=== PATIENT | female | born 1985 | race Caucasian/White ===

== ENCOUNTER 2022-07-09 22:49 | Inpatient (IN) | payer MEDICARE, MEDICAID ==
[~2022-07-09] VITALS: Ht 167.6 cm; Wt 63.2 kg
[2022-07-09 23:12] VITALS: BP 132/80
[2022-07-09 23:37] VITALS: BP 138/82
[2022-07-09 23:52] VITALS: BP 131/83
[2022-07-09] MEDS: LR 1,000 ML IV SCH (23:55)
[2022-07-10] VITALS (22 sets, daily range): BP systolic 105–187; BP diastolic 66–108
[2022-07-10 00:13] LABS: APPEARANCE, URINE MANUAL HAZY (CLEAR); COLOR, URINE MANUAL DK YELLOW (YELLOW)
[2022-07-10 00:14] LABS: GLUCOSE, URINE (UA) MANUAL 2+(250 MG/DL) mg/dL (NEGATIVE); KETONE, URINE MANUAL 1+ mg/dL (NEGATIVE); PH,URINE MAN 6.5 UNITS (5.0 - 7.0); PROTEIN, URINE MANUAL 1+ mg/dL (NEGATIVE)
[2022-07-10 00:15] LABS: BILIRUBIN, URINE MANUAL 1+ (NEGATIVE); BLOOD URINE MANUAL NEGATIVE (NEGATIVE); LEUKOCYTE ESTERASE, URINE MAN POSITIVE (NEGATIVE); NITRITE, URINE MANUAL NEGATIVE (NEGATIVE); UROBILINOGEN, URINE MANUAL 1 MG mg/dl (NORMAL)
[2022-07-10 00:33] LABS: URIC ACID 4.7 MG/DL (3.1-7.8)
[2022-07-10 00:35] LABS: LDH LACTATE DEHYDROGENASE 225 U/L (120-246)
[2022-07-10 00:36] LABS: ALT/SGPT 646 U/L (7.0-40); AST/SGOT 378 U/L (<34); BILIRUBIN,TOTAL 1.7 MG/DL (0.3-1.2); CREATININE FOR GFR 0.79 MG/DL (0.55-1.30); GLOMERULAR FILTRATION RATE > 60.0 (>60)
[2022-07-10 00:41] LABS: HEMATOCRIT 38.1 % (36.0-47.0); HEMOGLOBIN 12.6 g/dl (12.0-15.5); MEAN CORPUSCULAR HEMOGLOBIN 29.4 pg (27.0-33.0); MEAN CORPUSCULAR HGB CONC 33.1 g/dl (32.0-36.5); PLATELET COUNT, AUTOMATED 157 10^3/uL (150-450); RED BLOOD COUNT 4.28 10^6/uL (4.00-5.40); WHITE BLOOD COUNT 6.7 10^3/uL (4.0-10.0)
[2022-07-10 00:54] LABS: BACTERIA, URINE LARGE AMOUNT; SQUAMOUS EPITHELIAL CELL URINE MOD AMOUNT /hpf (SMALL AMT)
[2022-07-10 00:55] LABS: RBC, URINE 0-1 /hpf (0-3)
[2022-07-10 00:56] LABS: HYALINE CAST, URINE NONE SEEN /lpf (0-1)
[2022-07-10 01:00] LABS: AMPHETAMINES URINE REFLEX NEGATIVE (NEGATIVE); BARBITURATES URINE REFLEX NEGATIVE (NEGATIVE); BENZODIAZEPINES URINE REFLEX NEGATIVE (NEGATIVE); CANNABINOIDS URINE REFLEX NEGATIVE (NEGATIVE); COCAINE METABOLITE URINE REFLE NEGATIVE (NEGATIVE); CREATININE,RANDOM URINE 81.3 MG/DL; METHADONE URINE REFLEX NEGATIVE (NEGATIVE); OPIATES URINE REFLEX NEGATIVE (NEGATIVE); PHENCYCLIDINE URINE REFLEX NEGATIVE (NEGATIVE); TOTAL PROTEIN,RANDOM URINE 66.6 MG/DL (0.0-14.0)
[2022-07-10 01:17] LABS: HEPATITIS C VIRUS ABY INDEX < 0.0 INDEX (<0.8)
[2022-07-10 02:03] LABS: GC DNA AMPLIFICATION NEGATIVE (NEGATIVE)
[2022-07-10] MEDS ORDERED: BETAMETHASONE SOLUSPAN 6MG/ML 5ML VIAL IM ONE (05:00)
[2022-07-10] MEDS: PRENATAL VITAMINS CHEWABLE TABLET PO SCH (09:00)
[2022-07-10] MEDS ORDERED: ONDANSETRON 4MG 2ML VIAL IV PRN ×3 (09:40→13:35)
[2022-07-10 10:11] LABS: HEMATOCRIT 38.5 % (36.0-47.0); HEMOGLOBIN 12.5 g/dl (12.0-15.5); MEAN CORPUSCULAR HGB CONC 32.5 g/dl (32.0-36.5); MEAN CORPUSCULAR VOLUME 89.3 fl (80.0-96.0); PLATELET COUNT, AUTOMATED 168 10^3/uL (150-450); RED BLOOD COUNT 4.31 10^6/uL (4.00-5.40); WHITE BLOOD COUNT 8.5 10^3/uL (4.0-10.0)
[2022-07-10 10:35] LABS: ALBUMIN 2.3 G/DL (3.2-5.2); ALKALINE PHOSPHATASE 268 U/L (46-116); ALT/SGPT 588 U/L (7.0-40); AST/SGOT 385 U/L (<34); BILIRUBIN,TOTAL 2.1 MG/DL (0.3-1.2); BLOOD UREA NITROGEN 10 MG/DL (9-23); CALCIUM LEVEL 8.9 MG/DL (8.5-10.1); CARBON DIOXIDE LEVEL 22 MMOL/L (20-31); CHLORIDE LEVEL 102 MMOL/L (98-107); CREATININE FOR GFR 0.68 MG/DL (0.55-1.30); GLOMERULAR FILTRATION RATE > 60.0 (>60); GLUCOSE, FASTING 100 MG/DL (60-100); POTASSIUM SERUM 4.2 MMOL/L (3.5-5.1); SODIUM LEVEL 135 MMOL/L (136-145); TOTAL PROTEIN 6.7 G/DL (5.7-8.2)
[2022-07-10] MEDS ORDERED: LIDOCAINE 1% MDV 20ML VIAL INFIL PRN (11:05)
[2022-07-10] MEDS ORDERED: TRANEXAMIC ACID INJection 1,000 MG in NS 100 ML IV PRN (11:05)
[2022-07-10] MEDS ORDERED: BICITRA 30ML SOLN UDC PO ONE (11:05)
[2022-07-10] MEDS ORDERED: ceFAZolin SOD 2 GM in IV 1 EA IV ONE (11:05)
[2022-07-10] MEDS ORDERED: CARBOPROST TROMETHAMINE 250 MCG/ML AMP IM PRN (11:05)
[2022-07-10] MEDS: LR 1,000 ML IV SCH ×2 (11:41→17:05)
[2022-07-10 12:44] LABS: CORD GAS ABE V -2.9; CORD GAS O2 SAT V 52.4 %; CORD GAS PCO2 V 50.1 mmHg; CORD GAS PH V 7.299 UNITS; CORD GAS PO2 V 22.2 mmHg; CORD GAS SBC V 21.1 MEQ/L; CORD GAS TCO2 V 25.6 MEQ/L
[2022-07-10] MEDS ORDERED: OXYTOCIN 30UNITS IN 0.9% NaCl 500ML IV BAG As Ordered ONE ×2 (13:04→13:07)
[2022-07-10] MEDS ORDERED: hydrALAZINE 20MG/ML 1ML VIAL As Ordered ONE (13:07)
[2022-07-10] MEDS ORDERED: KETAMINE HCL 200MG/20ML VIAL As Ordered ONE (13:07)
[2022-07-10] MEDS ORDERED: LABETALOL 100MG/20ML VIAL As Ordered ONE (13:07)
[2022-07-10] MEDS ORDERED: MIDAZOLAM INJ 2MG/2ML VIAL As Ordered ONE (13:07)
[2022-07-10] MEDS ORDERED: ONDANSETRON 4MG 2ML VIAL As Ordered ONE (13:07)
[2022-07-10] MEDS ORDERED: ACETAMINOPHEN 1000MG 100ML IV BAG As Ordered ONE (13:07)
[2022-07-10] MEDS ORDERED: METOCLOPRAMIDE INJ 10MG/2ML VIAL As Ordered ONE (13:07)
[2022-07-10] MEDS ORDERED: KETOROLAC 60MG 2ML VIAL As Ordered ONE (13:07)
[2022-07-10] MEDS ORDERED: MORPHINE PRES-FREE INJ 10 MG/10 ML VIAL As Ordered ONE (13:07)
[2022-07-10] MEDS ORDERED: PERCOCET 5MG/325MG TAB PO PRN (13:20)
[2022-07-10] MEDS ORDERED: SIMETHICONE 80MG CHEW TAB PO PRN (13:20)
[2022-07-10] MEDS ORDERED: MORPHINE 2 MG/ML 1ML VIAL IV PRN (13:20)
[2022-07-10] MEDS ORDERED: RHOGAM 300MCG (1500IU) INJ IM SCH (13:20)
[2022-07-10] MEDS ORDERED: OXYTOCIN DRIP 30 UNITS in IV 1 EA IV SCH (13:20)
[2022-07-10] MEDS ORDERED: **NOTE PATIENT COMMENT** MISC XX SCH (13:35)
[2022-07-10] MEDS ORDERED: HYDROMORPHONE HCL 0.5 MG/ 0.5 ML SYRINGE IV PRN (13:35)
[2022-07-10] MEDS ORDERED: NALOXONE INJ 0.4MG/1ML VIAL IV PRN (13:35)
[2022-07-10] MEDS ORDERED: oxyCODONE 5MG TAB PO PRN (13:35)
[2022-07-10] MEDS ORDERED: MEPERIDINE 25 MG/ML 1ML VIAL IV PRN (13:35)
[2022-07-10] MEDS ORDERED: diphenhydrAMINE 50MG/ML VIAL IV PRN (13:35)
[2022-07-10] MEDS ORDERED: fentaNYL 100 MCG/2 ML INJECTION IV PRN (13:35)
[2022-07-10] MEDS ORDERED: METOCLOPRAMIDE INJ 10MG/2ML VIAL IV PRN (13:35)
[2022-07-10] MEDS: SLF 3 ML SYR IV SCH ×2 (13:46→21:38)
[2022-07-10] MEDS: PERCOCET 5MG/325MG TAB PO PRN ×2 (17:06→21:37)
[2022-07-10] MEDS: KETOROLAC 30 MG/ML 1ML VIAL IV SCH (18:49)
[2022-07-10] MEDS ORDERED: LIDOCAINE 1% MDV 50ML VIAL ONE (18:53)
[2022-07-10] MEDS: DOCUSATE SODIUM 100MG CAPSULE PO SCH (21:00)
[2022-07-11] MEDS: LR 1,000 ML IV SCH (00:10)
[2022-07-11] MEDS: KETOROLAC 30 MG/ML 1ML VIAL IV SCH ×2 (00:59→07:15)
[2022-07-11 02:00] VITALS: BP 122/79
[2022-07-11] MEDS: PERCOCET 5MG/325MG TAB PO PRN ×3 (05:11→20:22)
[2022-07-11] MEDS: SLF 3 ML SYR IV SCH (05:47)
[2022-07-11 06:00] VITALS: BP 122/71
[2022-07-11] MEDS: DOCUSATE SODIUM 100MG CAPSULE PO SCH ×2 (08:01→21:00)
[2022-07-11] MEDS: PRENATAL VITAMINS CHEWABLE TABLET PO SCH (08:02)
[2022-07-11 10:00] VITALS: BP 114/65
[2022-07-11 14:00] VITALS: BP 144/77
[2022-07-11] MEDS: IBUPROFEN 800 MG TAB PO SCH ×2 (15:20→23:00)
[2022-07-11 19:40] VITALS: BP 132/73
[2022-07-12] MEDS: IBUPROFEN 800 MG TAB PO SCH ×5 (06:30→23:00)
[2022-07-12] MEDS ORDERED: PERCOCET PO (07:29)
[2022-07-12] MEDS ORDERED: IBUP80TA PO (07:29)
[2022-07-12] MEDS ORDERED: COLA100C5 PO (07:29)
[2022-07-12] MEDS ORDERED: MEASLES,MUMPS,RUBELLA VACCINE INJ (MMR-II) SC.IMMUN ONE (09:00)
[2022-07-12] MEDS: DOCUSATE SODIUM 100MG CAPSULE PO SCH ×2 (09:00→21:00)
[2022-07-12] MEDS: PRENATAL VITAMINS CHEWABLE TABLET PO SCH (09:00)
[2022-07-12 12:04] VITALS: BP 131/82
[2022-07-12] MEDS: ACETAMINOPHEN 500 MG TAB PO PRN ×2 (12:15→22:52)
[2022-07-12] MEDS ORDERED: OLANZapine 5 MG TAB PO PRN (16:45)
[2022-07-12 18:00] VITALS: BP 138/89
[2022-07-12] MEDS: PERCOCET 5MG/325MG TAB PO PRN (23:25)
[2022-07-13] MEDS: IBUPROFEN 800 MG TAB PO SCH ×2 (07:00→15:00)
[2022-07-13] MEDS: PRENATAL VITAMINS CHEWABLE TABLET PO SCH (08:27)
[2022-07-13] MEDS: DOCUSATE SODIUM 100MG CAPSULE PO SCH (08:28)
[2022-07-13] MEDS ORDERED: MEASLES,MUMPS,RUBELLA VACCINE INJ (MMR-II) SC.IMMUN ONE (09:00)
[2022-07-13] MEDS ORDERED: NITR-67 PO (09:47)
[2022-07-13 14:02] VITALS: BP 132/88
== END 2022-07-13 17:40 | DRG 788 ==
LOC: M LDI 22:49 → M OBS 07-10 14:54
PROVIDERS: ADMIT Advanced Practice Midwife; ATTEND Advanced Practice Midwife
PROC: 10D00Z1 Extraction of Products of Conception, Low, Open Approach (ICD-10-PCS; principal; 2022-07-10 11:30)
DX: O14.24 HELLP syndrome, complicating childbirth (principal); Z3A.35 35 weeks gestation of pregnancy; O44.03 Complete placenta previa NOS or without hemorrhage, third trimester; O34.211 Maternal care for low transverse scar from previous cesarean delivery; O99.334 Smoking (tobacco) complicating childbirth; F17.200 Nicotine dependence, unspecified, uncomplicated; Z88.2 Allergy status to sulfonamides; Z88.5 Allergy status to narcotic agent; Z88.8 Allergy status to other drugs, medicaments and biological substances; O99.344 Other mental disorders complicating childbirth; F29 Unspecified psychosis not due to a substance or known physiological condition; F19.159 Other psychoactive substance abuse with psychoactive substance-induced psychotic disorder, unspecified; F53.1 Puerperal psychosis; Z37.0 Single live birth; O99.324 Drug use complicating childbirth

== ENCOUNTER 2022-07-13 15:32 | Inpatient (IN) | payer MEDICARE, MEDICAID ==
[~2022-07-13] VITALS: Ht 167.6 cm; Wt 63.1 kg
[~2022-07-13 15:32] MED LIST: COLA100C5 PO; IBUP80TA PO; NITR-67 PO; PERCOCET PO
[2022-07-13] MEDS ORDERED: LORazepam 1 MG TAB PO PRN (17:00)
[2022-07-13] MEDS ORDERED: MOM 30ML SUSPENSION UDC PO PRN (17:00)
[2022-07-13] MEDS ORDERED: OLANZapine ORAL DISINTEGRATING TAB 5MG PO PRN (17:00)
[2022-07-13] MEDS ORDERED: MAALOX 30 ML SUSP *UDC PO PRN (17:00)
[2022-07-13] MEDS ORDERED: SIMETHICONE 80MG CHEW TAB PO PRN (17:05)
[2022-07-13] MEDS ORDERED: PERCOCET 5MG/325MG TAB PO PRN (17:05)
[2022-07-13 18:39] VITALS: BP 140/90
[2022-07-13] MEDS: OLANZapine 10 MG TAB PO SCH (18:53)
[2022-07-13] MEDS: ACETAMINOPHEN TAB 650MG DOSE (2X325MG) PO PRN (19:58)
[2022-07-13] MEDS: DOCUSATE SODIUM 100MG CAPSULE PO SCH (20:00)
[2022-07-13] MEDS: CIPROFLOXACIN 500MG TABLET PO SCH (21:11)
[2022-07-13] MEDS: IBUPROFEN 800 MG TAB PO SCH (21:12)
[2022-07-13] MEDS: PERCOCET 5MG/325MG TAB PO PRN (22:26)
[2022-07-14] MEDS: CIPROFLOXACIN 500MG TABLET PO SCH ×2 (06:09→17:06)
[2022-07-14] MEDS: IBUPROFEN 800 MG TAB PO SCH ×3 (06:13→20:08)
[2022-07-14 06:54] VITALS: BP 119/72
[2022-07-14] MEDS: DOCUSATE SODIUM 100MG CAPSULE PO SCH ×2 (09:56→20:08)
[2022-07-14] MEDS: PRENATAL VITAMINS CHEWABLE TABLET PO SCH (09:56)
[2022-07-14] MEDS: OLANZapine 10 MG TAB PO SCH (09:56)
[2022-07-14] MEDS: PERCOCET 5MG/325MG TAB PO PRN ×2 (09:57→17:07)
[2022-07-14] MEDS ORDERED: NICOTINE 14 MG/24 HR TRANSDERMAL TD PRN (11:15)
[2022-07-14 12:03] LABS: BASO # 0.1 10^3/uL (0.0-0.2); BASO % 0.7 % (0.0-1.0); EOS # 0.4 10^3/uL (0.0-0.5); EOS % 3.6 % (0.0-3.0); HEMATOCRIT 37.5 % (36.0-47.0); HEMOGLOBIN 12.2 g/dl (12.0-15.5); LYMPH # 1.5 10^3/uL (1.5-5.0); MEAN CORPUSCULAR HEMOGLOBIN 29.1 pg (27.0-33.0); MEAN CORPUSCULAR HGB CONC 32.5 g/dl (32.0-36.5); MEAN CORPUSCULAR VOLUME 89.5 fl (80.0-96.0); MONO # 0.4 10^3/uL (0.0-0.8); MONO % 3.6 % (2.0-8.0); NEUTROPHILS # 7.8 10^3/uL (1.5-8.5); PLATELET COUNT, AUTOMATED 321 10^3/uL (150-450); RED BLOOD COUNT 4.19 10^6/uL (4.00-5.40); WHITE BLOOD COUNT 10.2 10^3/uL (4.0-10.0)
[2022-07-14 14:29] LABS: ALBUMIN 2.3 G/DL (3.2-5.2); ALKALINE PHOSPHATASE 409 U/L (46-116); ALT/SGPT 318 U/L (7.0-40); AST/SGOT 147 U/L (<34); BILIRUBIN,TOTAL 0.8 MG/DL (0.3-1.2); BLOOD UREA NITROGEN 17 MG/DL (9-23); CARBON DIOXIDE LEVEL 27 MMOL/L (20-31); CHLORIDE LEVEL 105 MMOL/L (98-107); CREATININE FOR GFR 0.74 MG/DL (0.55-1.30); GLOMERULAR FILTRATION RATE > 60.0 (>60); GLUCOSE, FASTING 79 MG/DL (60-100); POTASSIUM SERUM 3.9 MMOL/L (3.5-5.1); SODIUM LEVEL 138 MMOL/L (136-145)
[2022-07-14 16:13] VITALS: BP 100/60
[2022-07-14] MEDS: traZODone 50 MG TAB PO PRN (20:08)
[2022-07-14 22:08] LABS: TOTAL PROTEIN 6.7 G/DL (5.7-8.2)
[2022-07-15] MEDS: CIPROFLOXACIN 500MG TABLET PO SCH ×2 (06:30→18:13)
[2022-07-15] MEDS: IBUPROFEN 800 MG TAB PO SCH ×3 (06:34→21:09)
[2022-07-15 06:41] LABS: CHOLESTEROL RISK RATIO 8.52 (<5); HDL CHOLESTEROL 32.6 MG/DL (>40); LDL CHOLESTEROL 198.2 MG/DL (<100)
[2022-07-15 06:42] VITALS: BP 130/76
[2022-07-15] MEDS: DOCUSATE SODIUM 100MG CAPSULE PO SCH ×2 (10:26→20:53)
[2022-07-15] MEDS: PRENATAL VITAMINS CHEWABLE TABLET PO SCH (10:26)
[2022-07-15] MEDS: OLANZapine 10 MG TAB PO SCH (10:26)
[2022-07-15 18:48] VITALS: BP 131/74
[2022-07-15] MEDS: ACETAMINOPHEN TAB 650MG DOSE (2X325MG) PO PRN (20:53)
[2022-07-16] MEDS: ACETAMINOPHEN TAB 650MG DOSE (2X325MG) PO PRN (03:18)
[2022-07-16] MEDS: CIPROFLOXACIN 500MG TABLET PO SCH ×2 (05:38→17:43)
[2022-07-16] MEDS: IBUPROFEN 800 MG TAB PO SCH ×3 (05:41→22:04)
[2022-07-16 05:55] VITALS: BP 134/91
[2022-07-16] MEDS: DOCUSATE SODIUM 100MG CAPSULE PO SCH ×2 (09:11→20:07)
[2022-07-16] MEDS: PRENATAL VITAMINS CHEWABLE TABLET PO SCH (09:11)
[2022-07-16] MEDS: OLANZapine 10 MG TAB PO SCH (09:11)
[2022-07-16 16:13] VITALS: BP 136/85
[2022-07-16] MEDS: PERCOCET 5MG/325MG TAB PO PRN (20:07)
[2022-07-17] MEDS: CIPROFLOXACIN 500MG TABLET PO SCH ×2 (05:59→17:54)
[2022-07-17] MEDS: IBUPROFEN 800 MG TAB PO SCH ×3 (06:05→21:45)
[2022-07-17 06:34] VITALS: BP 155/90
[2022-07-17] MEDS: DOCUSATE SODIUM 100MG CAPSULE PO SCH ×2 (08:59→21:43)
[2022-07-17] MEDS: PRENATAL VITAMINS CHEWABLE TABLET PO SCH (08:59)
[2022-07-17] MEDS: OLANZapine 10 MG TAB PO SCH (08:59)
[2022-07-17] MEDS: PERCOCET 5MG/325MG TAB PO PRN (10:30)
[2022-07-17 16:45] VITALS: BP 131/80
[2022-07-18] MEDS: PERCOCET 5MG/325MG TAB PO PRN (00:48)
[2022-07-18] MEDS: CIPROFLOXACIN 500MG TABLET PO SCH (06:02)
[2022-07-18] MEDS: IBUPROFEN 800 MG TAB PO SCH ×3 (06:05→21:42)
[2022-07-18 06:11] VITALS: BP 133/87
[2022-07-18] MEDS: DOCUSATE SODIUM 100MG CAPSULE PO SCH ×2 (08:51→21:33)
[2022-07-18] MEDS: PRENATAL VITAMINS CHEWABLE TABLET PO SCH (08:52)
[2022-07-18] MEDS: OLANZapine 10 MG TAB PO SCH (08:52)
[2022-07-18 16:14] VITALS: BP 139/89
[2022-07-19] MEDS: PERCOCET 5MG/325MG TAB PO PRN (02:42)
[2022-07-19] MEDS: IBUPROFEN 800 MG TAB PO SCH ×3 (05:58→21:54)
[2022-07-19 06:32] VITALS: BP 121/85
[2022-07-19] MEDS: OLANZapine 10 MG TAB PO SCH (10:32)
[2022-07-19] MEDS: PRENATAL VITAMINS CHEWABLE TABLET PO SCH (10:33)
[2022-07-19] MEDS: DOCUSATE SODIUM 100MG CAPSULE PO SCH ×2 (10:33→21:54)
[2022-07-19 17:37] VITALS: BP 138/90
[2022-07-19] MEDS: traZODone 50 MG TAB PO PRN (21:56)
[2022-07-20] MEDS: PERCOCET 5MG/325MG TAB PO PRN (01:29)
[2022-07-20] MEDS: IBUPROFEN 800 MG TAB PO SCH (05:22)
[2022-07-20 06:20] VITALS: BP 135/76
[2022-07-20] MEDS: PRENATAL VITAMINS CHEWABLE TABLET PO SCH (09:34)
[2022-07-20] MEDS: DOCUSATE SODIUM 100MG CAPSULE PO SCH (09:34)
[2022-07-20] MEDS: OLANZapine 10 MG TAB PO SCH (09:34)
[2022-07-20] MEDS ORDERED: OLAN1TAB20 PO (11:15)
[2022-07-20] MEDS ORDERED: NICO14PA TD (11:15)
[2022-07-20] MEDS ORDERED: TRAZ-252 PO (11:15)
[2022-07-20] MEDS ORDERED: NARC1SPR NARES (11:32)
== END 2022-07-20 13:10 | disposition home or self-care (01) | DRG 776 ==
LOC: M PSY 17:35
PROVIDERS: ADMIT Student in an Organized Health Care Education/Training Program; ATTEND Student in an Organized Health Care Education/Training Program
DX: O99.345 Other mental disorders complicating the puerperium (principal); F53.1 Puerperal psychosis; F15.10 Other stimulant abuse, uncomplicated